=== PATIENT | female | born 1950 | race Caucasian/White ===

== ENCOUNTER 2017-11-18 18:38 | Emergency (ER) | payer MEDICARE, OTHER ==
[~2017-11-18 18:38] MED LIST: ALBU18HF7 IH; BENZ200C53 PO; BUDE10.2 IH; DEXL60CA3 PO; DULO60CA63 PO; LEVO75TA10 PO; LINA145C PO; LORA1TAB3 PO; METO-408 PO; ROSU5TAB11 PO
[2017-11-18] MEDS ORDERED: ONDANSETRON HCL 4 MG/2 ML VIAL ONE (19:06)
[2017-11-18] MEDS ORDERED: MORPHINE SULFATE 4 MG/1ML SYG ONE (19:06)
== END 2017-11-18 20:16 | disposition home or self-care (01) ==
LOC: EDH 18:38
DX: S63.502A Unspecified sprain of left wrist, initial encounter (principal); S40.012A Contusion of left shoulder, initial encounter; S80.02XA Contusion of left knee, initial encounter; M54.2 Cervicalgia; E78.5 Hyperlipidemia, unspecified; I10 Essential (primary) hypertension; M79.1 Myalgia; Z88.0 Allergy status to penicillin; Z88.2 Allergy status to sulfonamides; Z98.890 Other specified postprocedural states; W18.39XA Other fall on same level, initial encounter; Y93.01 Activity, walking, marching and hiking; Y92.89 Other specified places as the place of occurrence of the external cause; Y99.8 Other external cause status
CPT/HCPCS: 29125; 73030; 73060; 73110; 73562; 93005; 96374; 96375; 99284; J2270; J2405